=== PATIENT | male | born 1980 | race Hispanic/Latino ===

== ENCOUNTER 2024-10-16 13:38 | Emergency (ER) | payer SELFPAY ==
[2024-10-16 15:57] LABS: ALT/SGPT 25 U/L (16-61); Albumin 4.4 g/dL (3.4-5.0); Alkaline Phosphatase 60 U/L (45-117); Anion Gap 6.1 mEq/L (5.0-15.0); BUN Blood Urea Nitrogen 11 mg/dL (7-18); Bicarbonate 30 mEq/L (21-32); Bilirubin Total 0.6 mg/dL (0.2-1.0); Globulin 4.3 g/dL (2.3-3.5); Glomerular Filtration Rate 78 ml/min (=/>90); Glucose Level 101 mg/dL (74-106); Protein, Total 8.7 g/dL (6.4-8.2); Sodium Level 136 mEq/L (136-145); Troponin High Sensitivity 4.2 pg/mL (<58.9)
[2024-10-16 15:58] LABS: AST/SGOT 20 U/L (15-37); Bilirubin Direct < 0.2 mg/dL (0-0.2); Bilirubin Indirect, Calculated 0.4 mg/dL (0.2-0.8); Magnesium 2.6 mg/dL (1.6-2.4); Potassium 4.1 mEq/L (3.5-5.1)
--- NOTE | 2024-10-16 16:10 | RAD REPORT ---
EXAMINATION: ONE VIEW CHEST XR CLINICAL INDICATION: SOB;Palpitations TECHNIQUE: Frontal chest projection is submitted. Examination is limited by patient positioning and t echnique. COMPARISON: No prior exam. FINDINGS: The lungs are well inflated and clear. The heart is normal in size. No displaced fractures identified . IMPRESSION: No acute intrathoracic abnormalities.
[2024-10-16 18:22] LABS: Sqamous Epithelial <5 /HPF (None Seen); Urine Bacteria None Seen /HPF (<20); Urine Crystals Unidentified Few /HPF (None Seen); Urine Culture Reflex Order NOT NEEDED; Urine Microscopic Reflex YN ORDER UMIC; Urine RBC <5 /HPF (None Seen); Urine WBC <5 /HPF (<5)
[2024-10-16 18:23] LABS: Specific Gravity 1.012 (1.005-1.030); Urine Bilirubin Negative (Negative); Urine Blood Negative (Negative); Urine Clarity Clear (Clear); Urine Color Light-Yellow (Yellow); Urine Glucose Negative (Negative); Urine Ketones Negative (Negative); Urine Protein Negative (Negative); Urine Urobilinogen Normal (Normal); Urine pH 6.5 (5.0-7.0)
[2024-10-16 18:24] LABS: Urine Nitrite Negative (Negative)
--- NOTE | 2024-10-16 19:04 | ER ---
Nurse's Notes [facility] Name: Poornima Boone Age: 44 yrs Sex: Male : 1980 Arrival Date: 10/16/2024 Time: 13:38 Bed 25 Private MD: Diagnosis: Person with feared health complaint in whom no diagnosis is made Presentation: 10/16 14:36 Chief complaint: Patient states: WAS SEEN AT A CLINIC AND WAS TOLD THAT HIS BLOOD SUGAR cm10 WAS ELEVATED AT 199 AND THAT HE HAD A KIDNEY INFECTION AND "SOMETHING WRONG WITH MY LIVER. THEY GAVE ME 2 ANTIBIOTIC SHOTS." PT STATES THAT HE WENT TO THE CLINIC BECAUSE HE WAS HAVING BLURRED VISION, SHAKING AND NECK PAIN. PT STATES THAT HE HADN'T BEEN FEELING WELL. Coronavirus screen: Client denies travel out of the [place] in the last 14 days. Ebola Screen: Patient denies travel to an Ebola-affected area in the 21 days before illness onset. Initial Sepsis Screen: Does the patient meet any 2 criteria? No. Patient's initial sepsis screen is negative. Does the patient have a suspected source of infection? No. Patient's initial sepsis screen is negative. Risk Assessment: Do you want to hurt yourself or someone else? Patient reports no desire to harm self or others. Onset of symptoms was October 16, 2024. 14:36 Method Of Arrival: Ambulatory cm10 14:36 Acuity: ANNALISE 3 cm10 Triage Assessment: 14:39 General: Appears in no apparent distress. comfortable, Behavior is calm, cooperative. cm10 Neuro: No deficits noted. Level of Consciousness is awake, alert, obeys commands, Oriented to person, place, time, situation, Appropriate for age. Respiratory: No deficits noted. Airway is patent Respiratory effort is even, unlabored, Respiratory pattern is regular, symmetrical. Historical: - Allergies: 14:38 PENICILLINS; cm10 - Home Meds: 14:38 None [Active]; cm10 - PMHx: 14:38 None; cm10 - PSHx: 14:38 None; cm10 - Immunization history:: Adult Immunizations up to date. - Infectious Disease History:: Denies. - Social history:: Smoking status: Patient denies any tobacco usage or history of. Screenin:57 [facility] ED Fall Risk Assessment (Adult) History of falling in the last 3 months, jb4 including since admission No falls in past 3 months (0 pts) Confusion or Disorientation No (0 pts) Intoxicated or Sedated No (0 pts) Impaired Gait No (0 pts) Mobility Assist Device Used No (0 pt) Altered Elimination No (0 pt) Score/Fall Risk Level 0 - 2 = Low Risk Oriented to surroundings, Maintained a safe environment. Abuse screen: Denies threats or abuse. Nutritional screening: No deficits noted. Tuberculosis screening: No symptoms or risk factors identified. Assessment: 15:30 General: Appears in no apparent distress. Behavior is calm, cooperative. Pain: Denies jb4 pain. Neuro: Level of Consciousness is awake, alert, obeys commands, Oriented to person, place, time, situation. Cardiovascular: Patient's skin is warm and dry. Respiratory: Airway is patent Respiratory effort is even, unlabored, Respiratory pattern is regular, symmetrical. Derm: Skin is intact, Skin is pink, warm \\T\\ dry. Musculoskeletal: Circulation, motion, and sensation intact. Range of motion: intact in all extremities. 18:00 Reassessment: Patient appears in no apparent distress at this time. Patient and/or jb4 family updated on plan of care and expected duration. Pain level reassessed. Patient is alert, oriented x 3, equal unlabored respirations, skin warm/dry/pink. 19:28 Reassessment: Patient appears in no apparent distress at this time. Patient and/or jb4 family updated on plan of care and expected duration. Pain level reassessed. Patient is alert, oriented x 3, equal unlabored respirations, skin warm/dry/pink. Vital Signs: 14:36 BP 147 / 89; Pulse 72; Resp 16; Temp 99(TE); Pulse Ox 100% on R/A; Weight 63.05 kg; cm10 Height 5 ft. 7 in. ; Pain 0/10; 15:45 BP 133 / 91; Pulse 70; Resp 15; Pulse Ox 100% on R/A; jb4 17:00 BP 130 / 94; Pulse 68; Resp 16; Pulse Ox 100% on R/A; jb4 18:00 BP 131 / 93; Pulse 70; Resp 16; Pulse Ox 98% on R/A; jb4 14:36 Body Mass Index 21.77 (63.05 kg, 170.18 cm) cm10 14:36 Pain Scale: Adult cm10 ED Course: 13:41 Patient arrived in ED. mr 13:48 Thomas Morgan PA is PHCP. cp 13:48 Shivani Jackson MD is Attending Physician. cp 14:38 Triage completed. cm10 14:39 Arm band placed on right wrist. Patient placed in waiting room. cm10 15:26 XRAY Chest (1 view) In Process Unspecified. EDMS 15:30 Inserted saline lock: 18 gauge in left antecubital area, using aseptic technique. Blood jb4 collected. 15:43 Basic Metabolic Panel Sent. jb4 15:43 CBC with Diff Sent. jb4 15:43 LFT's Sent. jb4 15:43 Magnesium Sent. jb4 15:43 Troponin HS Sent. jb4 15:43 Hemoglobin A1c Sent. jb4 15:57 Patient has correct armband on for positive identification. Bed in low position. Call jb4 light in reach. Side rails up X 1. Provided Education on: plan of care. 19:28 No provider procedures requiring assistance completed. IV discontinued, intact, jb4 bleeding controlled, No redness/swelling at site. Pressure dressing applied. Administered Medications: No medications were administered Medication: 19:28 VIS not applicable for this client. jb4 Point of Care Testing: Blood Glucose: 14:36 Blood Glucose: 134 mg/dL; cm10 Ranges: Outcome: 19:03 Discharge ordered by . cp 19:28 Discharged to home ambulatory, jb4 19:28 Condition: stable 19:28 Discharge instructions given to patient, Instructed on discharge instructions, follow up and referral plans. Demonstrated understanding of instructions, follow-up care, 19:29 Patient left the ED. jb4 Signatures: Dispatcher [employer] EDMO Francy Cuenca, Reg Reg mr Thomas Morgan PA PA cp Bryson, James, RN RN jb4 Sharon Fontanez, RN RN cm10
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
[2024-10-16 19:48] VITALS: TEMP 99
[2024-10-16 19:53] VITALS: BP 131/93; O2SAT 98
--- NOTE | 2024-10-17 13:37 | EKG ---
Test Date: 2024-10-16 Test Time: 15:38:01 Charging Operator: GHASSAN MEASUREMENT RESULTS: Intervals: Rate: 66 OK: 160 QRSD: 86 QT: 390 QTc: 408 [place]: P: 76 OK: 160 QRS: 78 T: 83 INTERPRETIVE STATEMENTS: Normal sinus rhythm Normal ECG No previous ECG available for comparison Electronically Signed On 10-17-24 13:35:48 [employer] SUPERINTENDENT by Terrell Collier
== END 2024-10-16 19:29 | disposition home or self-care (01) ==
LOC: ER 13:38
DX: Z71.1 Person with feared health complaint in whom no diagnosis is made (principal)
CPT/HCPCS: 36415; 71045; 80048; 80076; 81001; 82947; 83735; 84484; 93005; 99284